=== PATIENT | female | born 1980 ===

== ENCOUNTER 2021-11-18 21:56 | Emergency (ER) | payer MEDICARE ==
[2021-11-18 22:09] VITALS: BP 113/63
== END 2021-11-18 22:57 | disposition left against medical advice (07) ==
LOC: ED 21:56
DX: J45.909 Unspecified asthma, uncomplicated (principal); R45.851 Suicidal ideations; Z53.21 Procedure and treatment not carried out due to patient leaving prior to being seen by health care provider